=== PATIENT | female | born 1995 | race Caucasian/White ===

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

== ENCOUNTER → 2017-03-31 | Outpatient (CLI) | payer OTHER ==
[2017-03-31 14:36] LABS: ADD MAN DIFF? NO
[2017-03-31 14:52] LABS: BASO % 0 % (0-3); EOS # 0.1 x10^3/uL (0.0-0.7); EOS % 1 % (0-3); HEMATOCRIT 38.9 % (36.0-47.0); HEMOGLOBIN 13.5 g/dL (12.0-15.5); LYMPH # 3.3 x10^3/uL (1.0-4.8); LYMPH % 51 % (24-48); MEAN CORPUSCULAR HEMOGLOBIN 31 pg (25-35); MEAN CORPUSCULAR HGB CONC 35 g/dL (31-37); MEAN CORPUSCULAR VOLUME 88 fL (79-100); MONO # 0.5 x10^3/uL (0.0-1.1); MONO % 8 % (0-9); NEUT # 2.6 x10^3uL (1.8-7.7); NEUT % 40 % (31-73); PLATELET COUNT 292 x10^3/uL (140-400); RED BLOOD COUNT 4.41 x10^6/uL (3.50-5.40); RED CELL DISTRIBUTION WIDTH 13.4 % (11.5-14.5); WHITE BLOOD COUNT 6.5 x10^3/uL (4.0-11.0)
[2017-03-31 15:26] LABS: ALBUMIN 4.3 g/dL (3.4-5.0); ALBUMIN/GLOBULIN RATIO 1.2 (1.0-1.7); ALK PHOS 56 U/L (46-116); ALT (SGPT) 16 U/L (14-59); ANION GAP 7 (6-14); AST (SGOT) 12 U/L (15-37); BLOOD UREA NITROGEN 12 mg/dL (7-20); BUN/CREATININE RATIO 20 (6-20); CALCIUM 9.6 mg/dL (8.5-10.1); CARBON DIOXIDE 30 mmol/L (21-32); CHLORIDE 103 mmol/L (98-107); CREATININE 0.6 mg/dL (0.6-1.0); GFR 128.8; GLUCOSE 92 mg/dL (70-99); POTASSIUM 3.4 mmol/L (3.5-5.1); SODIUM 140 mmol/L (136-145); TOTAL BILIRUBIN 0.8 mg/dL (0.2-1.0); TOTAL PROTEIN 7.8 g/dL (6.4-8.2)
[2017-03-31 15:36] LABS: THYROID STIM HORMONE (TSH) 0.955 uIU/mL (0.358-3.74)
[2017-04-01 01:11] LABS: THYROXINE 9.3 ug/dL (4.5-12.0)
[2017-04-01 02:17] LABS: HEMOGLOBIN A1C 4.4 % (4.8-5.6)
[2017-04-01 04:17] LABS: FSH 6.6 mIU/mL (.); LUTEINIZING HORMONE 25.3 mIU/mL (.); TESTOSTERONE TOTAL 48 ng/dL (.)
[2017-04-01 07:26] LABS: ESTRADIOL LEVEL 106.6 pg/mL (.)
== END | disposition home or self-care (01) ==
LOC: LAB 14:22
DX: N92.1 Excessive and frequent menstruation with irregular cycle (principal); R79.89 Other specified abnormal findings of blood chemistry
CPT/HCPCS: 36415; 80053; 82670; 83001; 83002; 83036; 84403; 84436; 84443; 84702; 85025

== ENCOUNTER 2017-05-22 22:52 | Emergency (ER) | payer OTHER ==
[2017-05-22 23:39] LABS: URINE HCG POC HCG NEGATIVE (Negative)
[2017-05-22 23:56] LABS: ADD MAN DIFF? NO
[2017-05-22 23:58] LABS: BASO % 0 % (0-3); EOS # 0.1 x10^3/uL (0.0-0.7); EOS % 1 % (0-3); HEMATOCRIT 42.2 % (36.0-47.0); LYMPH # 4.5 x10^3/uL (1.0-4.8); LYMPH % 42 % (24-48); MEAN CORPUSCULAR HEMOGLOBIN 31 pg (25-35); MEAN CORPUSCULAR HGB CONC 36 g/dL (31-37); MEAN CORPUSCULAR VOLUME 88 fL (79-100); MONO # 0.7 x10^3/uL (0.0-1.1); MONO % 6 % (0-9); NEUT # 5.4 x10^3uL (1.8-7.7); NEUT % 51 % (31-73); PLATELET COUNT 316 x10^3/uL (140-400); RED BLOOD COUNT 4.83 x10^6/uL (3.50-5.40); WHITE BLOOD COUNT 10.7 x10^3/uL (4.0-11.0)
[2017-05-23] MEDS: IV NORMAL SALINE 1000ML BAG 1,000 ML IV
[2017-05-23 00:08] LABS: BILIRUBIN,URINE NEGATIVE (NEG); CLARITY,URINE CLEAR; COLOR,URINE YELLOW; GLUCOSE,URINE NEGATIVE (NEG); INR 1.1 (0.8-1.1); NITRITE,URINE NEGATIVE (NEG); PARTIAL THROMBOPLASTIN TIME 29 SEC (24-38); PH,URINE 7.5; PROTEIN,URINE 30 mg/dL (NEG-TRACE); PROTHROMBIN TIME PATIENT 13.8 SEC (11.7-14.0); UROBILINOGEN,URINE 0.2 mg/dL (0.2 mg/dL)
[2017-05-23 00:09] LABS: ETHANOL < 10 mg/dL (0-10)
[2017-05-23 00:09] LABS: ANION GAP 10 (6-14); BLOOD UREA NITROGEN 14 mg/dL (7-20); BUN/CREATININE RATIO 18 (6-20); CARBON DIOXIDE 25 mmol/L (21-32); CHLORIDE 105 mmol/L (98-107); CREATININE 0.8 mg/dL (0.6-1.0); GFR 92.4; GLUCOSE 108 mg/dL (70-99); POTASSIUM 3.4 mmol/L (3.5-5.1); SODIUM 140 mmol/L (136-145)
[2017-05-23 00:14] LABS: RBC,URINE 0 /HPF (0-2)
[2017-05-23 00:15] LABS: ALBUMIN 4.2 g/dL (3.4-5.0); ALBUMIN/GLOBULIN RATIO 1.2 (1.0-1.7); ALK PHOS 64 U/L (46-116); ALT (SGPT) 17 U/L (14-59); AMORPHOUS SEDIMENT,UR PRESENT /HPF; AMPHETAMINE/METHAMPHETAMINE NEG (NEG); AST (SGOT) 12 U/L (15-37); BACTERIA,URINE MODERATE /HPF (0-FEW); BARBITURATES NEG (NEG); BENZODIAZEPINES NEG (NEG); CANNABINOIDS NEG (NEG); COCAINE NEG (NEG); ETHANOL, URINE NEG (NEG); LIPASE 111 U/L (73-393); METHADONE NEG (NEG); OPIATES NEG (NEG); PHENCYCLIDINE NEG (NEG); SQUAMOUS EPITHELIAL CELL,UR MOD /LPF; TOTAL BILIRUBIN 0.7 mg/dL (0.2-1.0); TOTAL PROTEIN 7.6 g/dL (6.4-8.2)
[2017-05-23 00:16] LABS: TROPONINI < 0.017 ng/mL (0.000-0.055)
[2017-05-23 00:20] LABS: NT-PRO BNP 19 pg/mL (0-124)
[2017-05-23] MEDS: diphenhydrAMINE 50 MG/ML VIAL IVP (00:37)
[2017-05-23] MEDS: KETOROLAC 30 MG/ML INJ. IV (00:37)
[2017-05-23] MEDS: LIDO:MAALOX 1:1 20 ML SINGLE DOSE. SWSW (00:38)
[2017-05-23] MEDS: PROCHLORPERAZINE 10 MG/2 ML VIAL. IV (00:38)
[2017-05-23] MEDS: POTASSIUM CHLORIDE 20 MEQ TABLET.ER. PO (02:00)
== END 2017-05-23 02:06 | disposition home or self-care (01) ==
LOC: ER 05-23 02:06
DX: R10.13 Epigastric pain (principal); R07.2 Precordial pain; R20.2 Paresthesia of skin; R51 Headache; G43.909 Migraine, unspecified, not intractable, without status migrainosus
CPT/HCPCS: 36415; 70450; 71046; 80053; 80307; 81001; 81025; 83690; 83880; 84484; 85025; 85610; 85730; 87086; 87186; 93005; 96361; 96374; 96375; 99285-25; G0480; J0780; J1200; J1885; J7030